=== PATIENT | female | born 1950 ===

== ENCOUNTER 2018-02-19 07:36 | Day surgery (SDC) | payer OTHER | END 2018-02-19 10:20 | disposition home or self-care (01) | LOC: AMB-ENDOS 07:36 | DX: D12.3 Benign neoplasm of transverse colon (principal); D12.1 Benign neoplasm of appendix ==

== ENCOUNTER 2018-08-14 13:04 | Outpatient (CLI) | payer OTHER | END 2018-08-14 13:23 | disposition home or self-care (01) | LOC: MRI 13:04 | DX: M48.062 Spinal stenosis, lumbar region with neurogenic claudication (principal); M54.16 Radiculopathy, lumbar region | CPT/HCPCS: 72114; 72158; A9575 ==

== ENCOUNTER 2022-11-15 12:25 | Emergency (ER) | payer OTHER ==
[~2022-11-15] VITALS: Ht 162.6 cm; Wt 83.9 kg
[2022-11-15] MEDS ORDERED: GLUMETZA500 MG (12:39)
[2022-11-15] MEDS ORDERED: CLONAZEPAM0.125 MG (12:39)
== END 2022-11-15 18:51 | disposition home or self-care (01) ==
LOC: ER 12:25
DX: R10.9 Unspecified abdominal pain (principal); Z88.2 Allergy status to sulfonamides; Z88.0 Allergy status to penicillin; E11.9 Type 2 diabetes mellitus without complications; Z79.84 Long term (current) use of oral hypoglycemic drugs; N20.0 Calculus of kidney; K57.30 Diverticulosis of large intestine without perforation or abscess without bleeding; K64.8 Other hemorrhoids